=== PATIENT | male | born 1985 | race Caucasian/White ===

== ENCOUNTER 2016-08-03 07:42 | Emergency (ER) | payer MEDICARE, OTHER | END 2016-08-03 12:35 | disposition home or self-care (01) | LOC: ER 07:42 | DX: S20.212A Contusion of left front wall of thorax, initial encounter (principal); S22.42XA Multiple fractures of ribs, left side, initial encounter for closed fracture; W01.0XXA Fall on same level from slipping, tripping and stumbling without subsequent striking against object, initial encounter; Y92.019 Unspecified place in single-family (private) house as the place of occurrence of the external cause | CPT/HCPCS: 70450; 70486; 71100; 71250; 99283-25; 99284 ==

== ENCOUNTER 2016-08-16 21:16 | Emergency (ER) | payer MEDICARE, OTHER | END 2016-08-16 21:26 | disposition home or self-care (01) | LOC: ER 21:16 | DX: R68.84 Jaw pain (principal); K08.89 Other specified disorders of teeth and supporting structures; K13.79 Other lesions of oral mucosa | CPT/HCPCS: 99282 ==